=== PATIENT | female | born 1955 | race Caucasian/White ===

== ENCOUNTER 2021-11-25 13:24 | Outpatient (CLI) | payer MEDICARE, BC, SELFPAY ==
--- NOTE | 2021-11-25 13:40 | CRLHL7_ITS ---
For Patients: As a result of the Century Cures Act, medical imaging exams and procedure reports are released immediately into your electronic medical record. You may view this report before your referring provider. If you have questions, please contact your health care provider. BILATERAL MAMMOGRAM WITH COMPUTER-AIDED DETECTION TECHNIQUE: CC and MLO views were obtained. These mammographic images have been obtained using full-field digital technique. These mammographic images were interpreted with the benefit of computer-aided detection. COMPARISON FILM: No priors available. FINDINGS: There are scattered areas of fibroglandular density IMPRESSION: There is no radiographic evidence for malignancy. ASSESSMENT: BI-RADS Category 2: Benign RECOMMENDATION: Routine screening mammogram in 1 year. A lay language report of this examination will be provided to the patient. Magdy Stinson M.D. Diagnostic Radiologist [email or web address] ELIUD/Dictated by: Magdy Stinson MD @ 11/28/2021 8:36:00 AM (Electronically Signed)
== END 2021-11-25 13:25 | disposition home or self-care (01) ==
LOC: MAMMO 13:28
PROVIDERS: PCP Internal Medicine; Visit Provider Internal Medicine
DX: Z12.31 Encounter for screening mammogram for malignant neoplasm of breast (principal); R92.8 Other abnormal and inconclusive findings on diagnostic imaging of breast
CPT/HCPCS: 77063; 77067

== ENCOUNTER 2021-12-01 11:40 | Outpatient (CLI) | payer MEDICARE, BC, SELFPAY ==
--- NOTE | 2021-12-01 14:01 | W.ANESCHARGE ---
Anesthesia Charges Start Date/Time Anesthesia Start Date: 12/01/21 Anesthesia Start Time: 13:04 Stop Date/Time Anesthesia Stop Date: 12/01/21 Anesthesia Stop Time: 13:44 Summary Emergency: No
--- NOTE | 2021-12-01 14:21 | W.ANESCHARGE ---
Anesthesia Charges Start Date/Time Anesthesia Start Date: 12/01/21 Anesthesia Start Time: 13:04 Stop Date/Time Anesthesia Stop Date: 12/01/21 Anesthesia Stop Time: 13:44 Summary Emergency: No
== END 2021-12-01 11:41 | disposition home or self-care (01) ==
LOC: OP CLINIC 11:41
PROVIDERS: PCP Internal Medicine; Visit Provider Surgery
DX: Z90.49 Acquired absence of other specified parts of digestive tract (principal); K63.5 Polyp of colon; Z01.818 Encounter for other preprocedural examination; Z93.3 Colostomy status
CPT/HCPCS: 44394; 45330; 811; 88305; J2704

== ENCOUNTER 2021-12-07 08:43 | Outpatient (CLI) | payer MEDICARE, BC, SELFPAY ==
[2021-12-07 12:06] LABS: Cholesterol* 248 mg/dL (90-199)
[2021-12-07 12:07] LABS: HDL Cholesterol* 63 mg/dL (>=50); LDL Cholesterol Calculated 169 mg/dL (<100); Triglycerides* 81 mg/dL (40-149)
== END 2021-12-07 08:44 | disposition home or self-care (01) ==
PROVIDERS: PCP Internal Medicine; Visit Provider Obstetrics & Gynecology
DX: Z01.419 Encounter for gynecological examination (general) (routine) without abnormal findings (principal); Z12.4 Encounter for screening for malignant neoplasm of cervix; Z13.6 Encounter for screening for cardiovascular disorders; Z11.3 Encounter for screening for infections with a predominantly sexual mode of transmission
CPT/HCPCS: 80061; 87624; 88175

== ENCOUNTER 2021-12-26 07:14 | Outpatient (CLI) | payer MEDICARE, BC, SELFPAY ==
--- NOTE | 2021-12-26 07:22 | CRLHL7_ITS ---
For Patients: As a result of the Century Cures Act, medical imaging exams and procedure reports are released immediately into your electronic medical record. You may view this report before your referring provider. If you have questions, please contact your health care provider. Indication: FOLLOW UP COLON CANCER Technique: Postcontrast CT chest, abdomen and pelvis. 60 cc Isovue 370 intravenous contrast. Oral water. Please note that all CT scans at this facility use dose modulation, iterative reconstruction, and/or weight-based dosing when appropriate to reduce radiation dose to as low as reasonably achievable. Comparison: 07/21/2021 Findings: In the chest, there is a 1 centimeter left thyroid lobe nodule. Subcentimeter mediastinal and right hilar lymph nodes noted. No enlarged axillary lymph nodes. 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 No suspicious pulmonary nodule or mass. No infiltrate, edema, effusion or pneumothorax. No fracture. In the abdomen/pelvis, no suspicious intrahepatic mass. Stable cyst within the right hepatic lobe measuring 2.1 cm. No stigmata of cirrhosis. Gallbladder normal. Stable appearance of the left adrenal gland with unchanged nodularity. Stable benign hypodensity in the spleen measuring 1 centimeter. Tiny simple cysts within the left kidney are similar measuring up to 9 millimeters. Normal right adrenal gland. Unremarkable right kidney. No hydronephrosis. No enlarged retroperitoneal or mesenteric lymph nodes. The pancreas is normal. Weakening of the anterior abdominal wall without focal hernia. Similar appearance of the left lower quadrant ostomy without bowel obstruction or free air. No free fluid or abscess. Bladder normal. Stable appearance of the ovaries with small cystic changes. No large uterine fibroid. Appendix normal. Interval clearing of inflammatory changes regarding the anterior abdominal wall subcutaneous fat. Improved appearance of the bowel since the prior examination. The stomach is nondistended and there is prominence of the gastric wall. No fracture is noted. Mild degenerative changes. No suspicious intrinsic lesion. Impression: Postoperative changes of partial colectomy with unremarkable appearance of the left lower quadrant ostomy. No inflammatory changes or bowel obstruction. Clearing of inflammatory fluid about the anterior abdominal wall incision. Stable simple intrahepatic cyst and stable benign lesion within the spleen. Multiple small left renal cortical cysts. No suspicious adenopathy within the chest, abdomen or pelvis. COPD/emphysema changes within the lungs without suspicious pulmonary nodule. Chronic gastritis. Please note that all CT scans at this facility use dose modulation, iterative reconstruction, and/or weight-based dosing when appropriate to reduce radiation dose to as low as reasonably achievable. Dictated by Magdy Stinson MD @ 12/26/2021 10:49:21 AM (Electronically Signed)
[2021-12-26 07:52] LABS: Creatinine* 0.6 mg/dL (0.5-1.5); Estimated Glomerular Filt Rate 100 ml/min
== END 2021-12-26 07:15 | disposition home or self-care (01) ==
LOC: CT 07:15
PROVIDERS: PCP Internal Medicine; Visit Provider Internal Medicine Medical Oncology
DX: C18.9 Malignant neoplasm of colon, unspecified (principal); N28.1 Cyst of kidney, acquired; J44.9 Chronic obstructive pulmonary disease, unspecified; K29.50 Unspecified chronic gastritis without bleeding
CPT/HCPCS: 36415; 71260; 74177; 82565; J0690; J1100; J1170; J1885; J2250; J2405; J2704; J3010; Q9967

== ENCOUNTER 2022-02-24 13:57 | Outpatient (CLI) | payer MEDICARE, BC, SELFPAY | END 2022-02-24 13:58 | disposition home or self-care (01) | LOC: WOUND 13:58 | PROVIDERS: PCP Internal Medicine; Visit Provider Nurse Practitioner Family | DX: Z43.3 Encounter for attention to colostomy (principal); L24.A0 Irritant contact dermatitis due to friction or contact with body fluids, unspecified | CPT/HCPCS: 99212 ==

== ENCOUNTER 2022-04-27 14:54 | Outpatient (CLI) | payer MEDICARE, BC, SELFPAY ==
[2022-04-27 17:32] LABS: Cholesterol* 137 mg/dL (90-199); HDL Cholesterol* 47 mg/dL (>=50); LDL Cholesterol Calculated 69 mg/dL (<100); Triglycerides* 106 mg/dL (40-149)
== END 2022-04-27 14:55 | disposition home or self-care (01) ==
LOC: NFLDREF 16:06
PROVIDERS: PCP Internal Medicine; Visit Provider Internal Medicine
DX: E78.5 Hyperlipidemia, unspecified (principal)
CPT/HCPCS: 80061

== ENCOUNTER 2022-05-01 07:43 | Outpatient (CLI) | payer MEDICARE, BC, SELFPAY ==
--- NOTE | 2022-05-01 08:00 | CRLHL7_ITS ---
For Patients: As a result of the Century Cures Act, medical imaging exams and procedure reports are released immediately into your electronic medical record. You may view this report before your referring provider. If you have questions, please contact your health care provider. Indication: Follow-up colon cancer Technique: Post contrast CT chest, abdomen pelvis. 69 cc Isovue 370 intravenous contrast. Oral water. Please note that all CT scans at this facility use dose modulation, iterative reconstruction, and/or weight-based dosing when appropriate to reduce radiation dose to as low as reasonably achievable. Comparison: 12/26/2021 Findings: In the chest, stable nodularity of the left thyroid lobe. Stable subcentimeter mediastinal and right hilar lymph nodes. Atherosclerotic disease. No aneurysm. No dissection. No pericardial effusion. No fracture is present. Postop changes to the lower cervical spine. Stable benign pleural-based nodule right middle lobe measuring 2.4 millimeter, . COPD/emphysema. Small pleural-based density left upper lobe posteriorly measuring less than 3 millimeters, 08/04. In the abdomen, there is a stable cyst within the right hepatic lobe. No suspicious intrahepatic mass. Left lower quadrant ostomy is intact. There is no bowel obstruction. The adrenal glands are stable including stable nodularity of the left adrenal gland. Small renal cysts are present. There are stable benign areas of decreased density within the spleen representing cysts or hemangiomas. The pancreas is normal. Normal gallbladder. Vascular calcifications. No aneurysm. Weakening of the anterior abdominal wall is similar. No mesenteric or retroperitoneal adenopathy. In the pelvis, the ureters are normal. Normal bladder. The uterus is unremarkable. Stable calcifications associated with the ovaries bilaterally. The appendix is normal. No small bowel obstruction. No pelvic or inguinal adenopathy. Degenerative changes are present at both hips. Degenerative facet arthropathy lower lumbar spine. No fracture. Impression: No evidence of metastatic disease within the chest, abdomen or pelvis. Please note that all CT scans at this facility use dose modulation, iterative reconstruction, and/or weight-based dosing when appropriate to reduce radiation dose to as low as reasonably achievable. Dictated by Magdy Stinson MD @ 05/01/2022 1:00:02 PM (Electronically Signed)
[2022-05-01 08:16] LABS: Basophils Absolute Auto 0.02 K/uL (0.00-0.30); Basophils Percent Auto 0.3 % (0.0-3.0); Eosinophils Absolute Auto 0.13 K/uL (0.00-0.50); Eosinophils Percent Auto 1.7 % (0.0-7.0); Hematocrit 40.3 % (33.0-51.0); Hemoglobin* 13.1 gm/dL (12.0-16.0); Immature Granulocytes Abs Auto 0.02 K/uL (0.00-0.30); Immature Granulocytes Pct Auto 0.3 %; Lymphocytes Absolute Auto 2.35 K/uL (0.90-2.90); Lymphocytes Percent Auto 30.8 % (20-44); Mean Corpuscular HGB Conc 33 gm/dL (32-36); Mean Corpuscular Hemoglobin 30 pg (26-34); Mean Corpuscular Volume 94 fL (80-100); Monocytes Percent Auto 7.1 % (0.0-11.0); Neutrophils Absolute Auto 4.57 K/uL (1.7-7.0); Neutrophils Percent Auto 59.8 % (42.0-72.0); Platelet Count* 310 K/uL (140-440); RDW Coefficient of Variation % 12.7 % (11.5-15.5); Red Blood Count 4.31 m/uL (4.00-5.20); White Blood Count* 7.63 K/uL (4.50-11.00)
[2022-05-01 08:23] LABS: Slide Review Reflex No
[2022-05-01 08:25] LABS: Albumin* 4.3 g/dL (3.3-5.0); Chloride* 111 mmol/L (96-114); Potassium* 4.3 mmol/L (3.6-5.1); Sodium* 145 mmol/L (135-149)
[2022-05-01 08:27] LABS: Creatinine* 0.7 mg/dL (0.5-1.5); Estimated Glomerular Filt Rate 96 ml/min
[2022-05-01 08:28] LABS: Alanine Aminotransferase* 13 U/L (4-35); Alkaline Phosphatase* 71 U/L (40-150); Aspartate Amino Transferase* 17 U/L (12-35); Bilirubin Total* 0.6 mg/dL (0.1-1.5); Blood Urea Nitrogen* 8 mg/dL (7-30); Calcium* 9.3 mg/dL (8.4-10.6); Carbon Dioxide* 27 mmol/L (20-32); Glucose* 94 mg/dL (60-115); Total Protein* 7.2 g/dL (6.0-8.3)
[2022-05-02 22:24] LABS: Carcinoembryonic Antigen 4.1 ng/mL (<=3.8)
== END 2022-05-01 07:44 | disposition home or self-care (01) ==
LOC: CT 07:44
PROVIDERS: PCP Internal Medicine; Visit Provider Internal Medicine Medical Oncology
DX: Z85.038 Personal history of other malignant neoplasm of large intestine (principal)
CPT/HCPCS: 36415; 71260; 74177; 80053; 82378; 85025; Q9967

== ENCOUNTER 2022-05-08 14:45 | Outpatient (RCR) | payer MEDICARE, BC, SELFPAY | END 2022-07-01 23:59 | disposition home or self-care (01) | LOC: CCIC 14:45 | PROVIDERS: PCP Internal Medicine; Referring Provider Internal Medicine; Visit Provider Internal Medicine Medical Oncology | DX: C18.9 Malignant neoplasm of colon, unspecified (principal) | CPT/HCPCS: 99212; 99214 ==

== ENCOUNTER 2022-08-24 08:02 | Outpatient (CLI) | payer MEDICARE, BC, SELFPAY | END 2022-08-24 08:03 | disposition home or self-care (01) | LOC: WOUND 08:02 | PROVIDERS: PCP Internal Medicine; Visit Provider Nurse Practitioner Family | DX: Z43.3 Encounter for attention to colostomy (principal); L24.B1 Irritant contact dermatitis related to digestive stoma or fistula | CPT/HCPCS: 99213 ==

== ENCOUNTER 2022-11-06 07:33 | Outpatient (CLI) | payer MEDICARE, BC, SELFPAY ==
--- NOTE | 2022-11-06 08:00 | CRLHL7_ITS ---
For Patients: As a result of the Cures Act, medical imaging exams and procedure reports are released immediately into your electronic medical record. You may view this report before your referring provider. If you have questions, please contact your health care provider. INDICATION: High risk stage II colon cancer. Surgical resection. Colostomy. Follow-up. Restaging. TECHNIQUE: CT of the chest abdomen and pelvis. Oral water administered. 69 cc nonionic Isovue-370 administered. COMPARISON : May 01, 2022. FINDINGS: CT chest: No evidence for metastatic disease. The previously tiny sub cm nodules described in the left upper lobe and the right middle lobe are stable to less evident than before. Small stable left thyroid lobe nodule. No mediastinal lymphadenopathy. The included breasts are unremarkable. Normal caliber thoracic aorta. CT of the abdomen and pelvis: Partial left hemicolectomy. Diverting ostomy. Stable 2 cm hepatic cyst. Two tiny stable low-dense lesions of the spleen likely cysts or hemangiomas. The pancreas and right adrenal gland are unremarkable. Benign nodularity left adrenal gland may reflect a tiny adenoma unchanged. Few tiny renal cysts. No solid renal mass or stone. No renal obstruction. Vascular calcification within a normal caliber abdominal aorta and iliac arteries. Normal inferior vena cava. Normal appendix. The urinary bladder and uterus are unremarkable. Small postmenopausal ovaries with some peripheral calcification. No abdominopelvic ascites or lymphadenopathy. No inguinal lymphadenopathy. The included skeleton is negative for lytic or blastic lesions. Two level cervical spine fusion incompletely visualized. Degenerative narrowing of the hips. Degenerative change of the lower lumbar spine. IMPRESSION: No evidence for metastatic disease. No significant change. Please note that all CT scans at this facility use dose modulation, iterative reconstruction, and/or weight-based dosing when appropriate to reduce radiation dose to as low as reasonably achievable. Dictated by Jose Mcdaniel MD @ 11/06/2022 10:27:25 AM (Electronically Signed)
== END 2022-11-06 07:34 | disposition home or self-care (01) ==
LOC: CT 07:34
PROVIDERS: PCP Internal Medicine; Visit Provider Internal Medicine Medical Oncology
DX: Z85.038 Personal history of other malignant neoplasm of large intestine (principal)
CPT/HCPCS: 71260; 74177; 80053; 85025; Q9967

== ENCOUNTER 2022-11-06 07:52 | Outpatient (CLI) | payer MEDICARE, BC, SELFPAY | END 2022-11-06 07:53 | disposition home or self-care (01) | LOC: NFLDREF 10:26 | PROVIDERS: PCP Internal Medicine; Referring Provider Internal Medicine; Visit Provider Physician Assistant | DX: Z85.038 Personal history of other malignant neoplasm of large intestine (principal) | CPT/HCPCS: 80053; 82378; 85025 ==

== ENCOUNTER 2022-11-16 08:30 | Outpatient (RCR) | payer MEDICARE, BC, SELFPAY ==
[2022-08-09 17:38] LABS: Carcinoembryonic Antigen 4.2 ng/mL (<=3.8)
== END 2023-02-04 23:59 | disposition home or self-care (01) ==
LOC: CCIC 08:30
PROVIDERS: Internal Medicine Medical Oncology; PCP Internal Medicine; Referring Provider Internal Medicine; Visit Provider Physician Assistant
DX: C18.5 Malignant neoplasm of splenic flexure (principal); D12.6 Benign neoplasm of colon, unspecified; F17.200 Nicotine dependence, unspecified, uncomplicated; Z93.4 Other artificial openings of gastrointestinal tract status
CPT/HCPCS: 36415; 82378; 99212; 99214

== ENCOUNTER 2023-01-11 08:42 | Outpatient (CLI) | payer MEDICARE, BC, SELFPAY ==
--- NOTE | 2023-01-11 07:02 | W.ANESCHARGE ---
Anesthesia Charges Start Date/Time Anesthesia Start Date: 01/11/23 Anesthesia Start Time: 09:35 Stop Date/Time Anesthesia Stop Date: 01/11/23 Anesthesia Stop Time: 10:05
--- NOTE | 2023-01-11 10:27 | W.ANESCHARGE ---
Anesthesia Charges Start Date/Time Anesthesia Start Date: 01/11/23 Anesthesia Start Time: 09:35 Stop Date/Time Anesthesia Stop Date: 01/11/23 Anesthesia Stop Time: 10:05
== END 2023-01-11 08:43 | disposition home or self-care (01) ==
LOC: OP CLINIC 08:42
PROVIDERS: PCP Internal Medicine; Visit Provider Surgery
DX: Z85.038 Personal history of other malignant neoplasm of large intestine (principal); K63.5 Polyp of colon; Z90.49 Acquired absence of other specified parts of digestive tract
CPT/HCPCS: 00811; 44389; 45378; 88305; J2704

== ENCOUNTER 2023-04-03 12:41 | Outpatient (CLI) | payer MEDICARE, BC, SELFPAY ==
--- NOTE | 2023-04-03 13:00 | CRLHL7_ITS ---
For Patients: As a result of the Century Cures Act, medical imaging exams and procedure reports are released immediately into your electronic medical record. You may view this report before your referring provider. If you have questions, please contact your health care provider. BILATERAL SCREENING MAMMOGRAM WITH COMPUTER-AIDED DETECTION TECHNIQUE: CC and MLO views were obtained. These mammographic images have been obtained using full-field digital technique. These mammographic images were interpreted with the benefit of computer-aided detection. COMPARISON FILM: 11/25/21. FINDINGS: There are scattered areas of fibroglandular density IMPRESSION: There is no radiographic evidence for malignancy. ASSESSMENT: BI-RADS Category 2: Benign RECOMMENDATION: Routine screening mammogram in 1 year. A lay language report of this examination will be provided to the patient. Magdy Stinson M.D. Diagnostic Radiologist [email or web address] ELIUD/Dictated by: Magdy Stinson MD @ 04/04/2023 12:43:00 PM (Electronically Signed)
== END 2023-04-03 12:42 | disposition home or self-care (01) ==
PROVIDERS: PCP Internal Medicine; Visit Provider Internal Medicine
DX: Z12.31 Encounter for screening mammogram for malignant neoplasm of breast (principal)
CPT/HCPCS: 77067

== ENCOUNTER 2023-05-17 07:30 | Outpatient (CLI) | payer MEDICARE, BC, SELFPAY ==
--- NOTE | 2023-05-17 08:00 | CRLHL7_ITS ---
For Patients: As a result of the Century Cures Act, medical imaging exams and procedure reports are released immediately into your electronic medical record. You may view this report before your referring provider. If you have questions, please contact your health care provider. Indication: MALIGNANT NEOPLASM OF COLON, COLON CANCER SURVEILLANCE Technique: CT Chest/Abd/Pelvis W/69C Isovue-370 Please note that all CT scans at this facility use dose modulation, iterative reconstruction, and/or weight-based dosing when appropriate to reduce radiation dose to as low as reasonably achievable. Comparison: 11/06/2022 Findings: In the chest, stable 1.3 cm left thyroid lobe nodule. Incidental pericardial recess. Stable right hilar lymph node. No enlarged mediastinal or axillary lymph nodes. Unremarkable breast tissue. Atherosclerotic changes. No pleural or pericardial effusion. Emphysema. Biapical pleural parenchymal scarring. Stable left apical parenchymal scarring. In the abdomen, stable simple cyst within the right hepatic lobe. No suspicious intrahepatic mass. The gallbladder is normal. No biliary obstruction. The pancreas is normal. Stable spleen with incidental areas of decreased attenuation. Adrenal glands are normal. No hydronephrosis. Stable subcentimeter renal cortical cysts bilaterally. No hiatal hernia. Vascular calcifications. Stable subcentimeter retroperitoneal lymph nodes. Postoperative changes of hemicolectomy. No bowel obstruction. Weakening of the anterior abdominal wall again noted. In the pelvis, left lower quadrant ostomy is intact. The appendix is normal. Bladder unremarkable. Uterus normal. Small bilateral ovarian cysts are similar. No pelvic or inguinal adenopathy. Degenerative changes are present at the right hip. No fracture. Facet degeneration lower lumbar spine. Impression: Stable exam. No evidence of metastatic disease. Please note that all CT scans at this facility use dose modulation, iterative reconstruction, and/or weight-based dosing when appropriate to reduce radiation dose to as low as reasonably achievable. Dictated by Magdy Stinson MD @ 05/17/2023 4:59:05 PM (Electronically Signed)
== END 2023-05-17 07:31 | disposition home or self-care (01) ==
LOC: CT 07:31
PROVIDERS: PCP Internal Medicine; Visit Provider Physician Assistant
DX: C18.9 Malignant neoplasm of colon, unspecified (principal)
CPT/HCPCS: 36415; 71260; 74177; 80048; 85025; Q9967

== ENCOUNTER 2023-05-22 15:00 | Outpatient (RCR) | payer MEDICARE, BC, SELFPAY ==
[2023-05-17 08:08] LABS: Basophils Absolute Auto 0.04 K/uL (0.00-0.30); Basophils Percent Auto 0.5 % (0.0-3.0); Eosinophils Absolute Auto 0.17 K/uL (0.00-0.50); Eosinophils Percent Auto 2.3 % (0.0-7.0); Hematocrit 41.2 % (33.0-51.0); Hemoglobin* 13.5 gm/dL (12.0-16.0); Immature Granulocytes Abs Auto 0.03 K/uL (0.00-0.30); Immature Granulocytes Pct Auto 0.4 %; Lymphocytes Absolute Auto 2.15 K/uL (0.90-2.90); Lymphocytes Percent Auto 28.9 % (20-44); Mean Corpuscular HGB Conc 33 gm/dL (32-36); Mean Corpuscular Hemoglobin 31 pg (26-34); Mean Corpuscular Volume 96 fL (80-100); Monocytes Percent Auto 6.8 % (0.0-11.0); Neutrophils Absolute Auto 4.55 K/uL (1.7-7.0); Neutrophils Percent Auto 61.1 % (42.0-72.0); Platelet Count* 225 K/uL (140-440); RDW Coefficient of Variation % 13.5 % (11.5-15.5); Red Blood Count 4.31 m/uL (4.00-5.20); White Blood Count* 7.45 K/uL (4.50-11.00)
[2023-05-17 08:19] LABS: Chloride* 108 mmol/L (96-114); Potassium* 3.9 mmol/L (3.6-5.1); Sodium* 138 mmol/L (135-149)
[2023-05-17 08:22] LABS: Anion Gap 7 mEq/L (7-15); Carbon Dioxide* 23 mmol/L (20-32); Creatinine* 0.6 mg/dL (0.5-1.5); Estimated Glomerular Filt Rate 99 ml/min
[2023-05-17 08:23] LABS: Blood Urea Nitrogen* 7 mg/dL (7-30); Calcium* 8.4 mg/dL (8.4-10.6); Glucose* 97 mg/dL (60-115); Slide Review Reflex No
[2023-05-22 16:15] LABS: Albumin* 4.4 g/dL (3.3-5.0)
[2023-05-22 16:18] LABS: Aspartate Amino Transferase* 23 U/L (12-35); Bilirubin Total* 0.3 mg/dL (0.1-1.5); Total Protein* 7.4 g/dL (6.0-8.3)
[2023-05-22 16:19] LABS: Alanine Aminotransferase* 13 U/L (4-35); Alkaline Phosphatase* 78 U/L (40-150)
[2023-05-24 15:57] LABS: Carcinoembryonic Antigen 4.1 ng/mL (<=3.8)
--- NOTE | 2023-05-28 13:14 | ONC.NURNOTE ---
Labs reviewed by Dr. Mcqueen. Investor Relations Coordinator called pt to let her know labs were reviewed, no intervention needed at this time. Pt verbalized understanding of lab results.
== END 2023-11-13 23:59 | disposition home or self-care (01) ==
LOC: CCIC 15:00
PROVIDERS: PCP Internal Medicine; Referring Provider Internal Medicine; Visit Provider Internal Medicine Hematology & Oncology
DX: C18.5 Malignant neoplasm of splenic flexure (principal); Z85.038 Personal history of other malignant neoplasm of large intestine; Z86.010 Personal history of colon polyps; F17.200 Nicotine dependence, unspecified, uncomplicated; Z93.3 Colostomy status
CPT/HCPCS: 36415; 80048; 80076; 82378; 85025; 99213; 99214; G0463

== ENCOUNTER 2023-11-20 09:00 | Outpatient (RCR) | payer MEDICARE, BC, SELFPAY ==
[2023-11-14 07:50] LABS: Basophils Absolute Auto 0.01 K/uL (0.00-0.30); Basophils Percent Auto 0.1 % (0.0-3.0); Eosinophils Absolute Auto 0.25 K/uL (0.00-0.50); Eosinophils Percent Auto 3.2 % (0.0-7.0); Hematocrit 42.6 % (33.0-51.0); Hemoglobin* 13.8 gm/dL (12.0-16.0); Immature Granulocytes Abs Auto 0.01 K/uL (0.00-0.30); Immature Granulocytes Pct Auto 0.1 %; Lymphocytes Absolute Auto 2.95 K/uL (0.90-2.90); Lymphocytes Percent Auto 37.4 % (20-44); Mean Corpuscular HGB Conc 32 gm/dL (32-36); Mean Corpuscular Hemoglobin 31 pg (26-34); Mean Corpuscular Volume 96 fL (80-100); Monocytes Percent Auto 5.3 % (0.0-11.0); Neutrophils Absolute Auto 4.25 K/uL (1.7-7.0); Neutrophils Percent Auto 53.9 % (42.0-72.0); Platelet Count* 226 K/uL (140-440); RDW Coefficient of Variation % 13.1 % (11.5-15.5); Red Blood Count 4.42 m/uL (4.00-5.20); White Blood Count* 7.89 K/uL (4.50-11.00)
[2023-11-14 07:59] LABS: Slide Review Reflex No
[2023-11-14 08:05] LABS: Albumin* 4.5 g/dL (3.3-5.0); Chloride* 108 mmol/L (96-114); Sodium* 141 mmol/L (135-149)
[2023-11-14 08:06] LABS: Potassium* 4.8 mmol/L (3.6-5.1)
[2023-11-14 08:08] LABS: Alanine Aminotransferase* 27 U/L (4-35); Alkaline Phosphatase* 72 U/L (40-150); Anion Gap 4 mEq/L (7-15); Aspartate Amino Transferase* 25 U/L (12-35); Bilirubin Total* 0.4 mg/dL (0.1-1.5); Blood Urea Nitrogen* 11 mg/dL (7-30); Carbon Dioxide* 29 mmol/L (20-32); Creatinine* 0.6 mg/dL (0.5-1.5); Estimated Glomerular Filt Rate 98 ml/min; Glucose* 112 mg/dL (60-115); Total Protein* 7.1 g/dL (6.0-8.3)
[2023-11-14 08:09] LABS: Calcium* 9.3 mg/dL (8.4-10.6)
[2023-11-16 02:29] LABS: Carcinoembryonic Antigen 4.5 ng/mL (<=3.8)
== END 2024-05-12 23:59 | disposition home or self-care (01) ==
LOC: CCIC 09:00
PROVIDERS: PCP Internal Medicine; Referring Provider Internal Medicine; Visit Provider Internal Medicine Hematology & Oncology
DX: C18.5 Malignant neoplasm of splenic flexure (principal); F17.200 Nicotine dependence, unspecified, uncomplicated
CPT/HCPCS: 36415; 71260; 74177; 80053; 82378; 85025; 99214; G0463; Q9967

== ENCOUNTER 2024-05-28 14:25 | Outpatient (CLI) | payer MEDICARE, BC, SELFPAY ==
--- NOTE | 2024-05-28 15:00 | CRLHL7_ITS ---
For Patients: As a result of the Century Cures Act, medical imaging exams and procedure reports are released immediately into your electronic medical record. You may view this report before your referring provider. If you have questions, please contact your health care provider. BILATERAL SCREENING MAMMOGRAM WITH COMPUTER-AIDED DETECTION AND TOMOSYNTHESIS TECHNIQUE: CC and MLO views were obtained. These mammographic images have been obtained using full-field digital technique. These mammographic images were interpreted with the benefit of computer-aided detection. Breast Tomosynthesis was used in this interpretation. COMPARISON FILM: 04/03/23, 11/25/21. FINDINGS: There are scattered areas of fibroglandular density. IMPRESSION: There is no radiographic evidence for malignancy. ASSESSMENT: BI-RADS Category 1: Negative RECOMMENDATION: Routine screening mammogram in 1 year. A lay language report of this examination will be provided to the patient. Magdy Stinson M.D. Diagnostic Radiologist [email or web address] SP/Dictated by: Magdy Stinson MD @ 05/29/2024 10:08:00 AM (Electronically Signed)
--- NOTE | 2024-05-28 16:00 | CRLHL7_ITS ---
For Patients: As a result of the Century Cures Act, medical imaging exams and procedure reports are released immediately into your electronic medical record. You may view this report before your referring provider. If you have questions, please contact your health care provider. INDICATION: Malignant neoplasm of splenic flexure TECHNIQUE: Volumetric helical scanning of the chest, abdomen and pelvis was performed with 67 cc of Isovue 370 contrast material IV. Coronal and sagittal reconstructions were obtained. COMPARISON: Chest/abdomen/pelvis CT of 05/17/2023 FINDINGS: CHEST: No pulmonary nodule is evident. Centrilobular emphysema is demonstrated. No infiltrate, airway abnormality or pleural effusion is demonstrated. No axillary, mediastinal or hilar adenopathy is apparent. An unchanged 1.5 cm left thyroid nodule is demonstrated. The heart is normal in size. ABDOMEN/PELVIS: A left abdominal colostomy is again demonstrated. No recurrent mass is demonstrated. No lymphadenopathy, peritoneal implant or free intraperitoneal fluid is noted. Bowel is otherwise unremarkable except for sigmoid diverticulosis. The liver is unremarkable except for a 2 cm right hepatic lobe cyst. The bile ducts are within normal limits. Several low attenuation splenic lesions are again demonstrated appear unchanged. The spleen is normal in size and shape. An unchanged 1 cm left adrenal nodule is demonstrated. The adrenal glands are otherwise unremarkable. The kidneys are unremarkable. The uterus is unremarkable. Unchanged ovarian cysts are demonstrated. Postop rectus diastasis is again demonstrated. No lytic or blastic bone lesion is identified. IMPRESSION: 1. Left abdominal colostomy. No evidence of recurrent/metastatic disease. 2. Centrilobular emphysema. 3. Unchanged 1.5 cm left thyroid nodule. 4. Unchanged 1 cm left adrenal nodule. Please note that all CT scans at this facility use dose modulation, iterative reconstruction, and/or weight-based dosing when appropriate to reduce radiation dose to as low as reasonably achievable. Dictated by Felipe Keith MD @ 05/29/2024 3:34:50 PM (Electronically Signed)
== END 2024-05-28 14:26 | disposition home or self-care (01) ==
LOC: CT 14:29
PROVIDERS: PCP Internal Medicine; Visit Provider Internal Medicine Hematology & Oncology
DX: C18.5 Malignant neoplasm of splenic flexure (principal); E04.1 Nontoxic single thyroid nodule; E27.9 Disorder of adrenal gland, unspecified; Z12.31 Encounter for screening mammogram for malignant neoplasm of breast
CPT/HCPCS: 71260; 74177; 77063; 77067; Q9967

== ENCOUNTER 2024-06-12 08:30 | Outpatient (RCR) | payer MEDICARE, BC, SELFPAY ==
[2024-05-28 15:08] LABS: Hematocrit 42.9 % (33.0-51.0); Hemoglobin* 14.1 gm/dL (12.0-16.0); Immature Granulocytes Pct Auto 0.3 %; Mean Corpuscular HGB Conc 33 gm/dL (32-36); Mean Corpuscular Hemoglobin 32 pg (26-34); Mean Corpuscular Volume 98 fL (80-100); RDW Coefficient of Variation % 13.0 % (11.5-15.5); Red Blood Count 4.40 m/uL (4.00-5.20); White Blood Count* 11.90 K/uL (4.50-11.00)
[2024-05-28 15:25] LABS: Immature Granulocytes Abs Auto 0.00 K/uL (0.00-0.30); Lymphocytes Absolute Auto 4.00 K/uL (0.90-2.90); Slide Review Reflex No
[2024-05-28 15:53] LABS: Albumin* 4.7 g/dL (3.3-5.0); Chloride* 102 mmol/L (96-114); Potassium* 3.5 mmol/L (3.6-5.1); Sodium* 138 mmol/L (135-149)
[2024-05-28 15:55] LABS: Anion Gap 7 mEq/L (7-15); Bilirubin Total* 0.6 mg/dL (0.1-1.5); Carbon Dioxide* 29 mmol/L (20-32); Creatinine* 0.8 mg/dL (0.5-1.5); Estimated Glomerular Filt Rate 81 ml/min
[2024-05-28 15:56] LABS: Alanine Aminotransferase* 25 U/L (4-35); Alkaline Phosphatase* 66 U/L (40-150); Aspartate Amino Transferase* 24 U/L (12-35); Blood Urea Nitrogen* 20 mg/dL (7-30); Calcium* 9.6 mg/dL (8.4-10.6); Glucose* 73 mg/dL (60-115); Total Protein* 7.8 g/dL (6.0-8.3)
[2024-05-31 13:44] LABS: Carcinoembryonic Antigen 5.0 ng/mL (<=3.8)
== END 2024-11-24 23:59 | disposition home or self-care (01) ==
LOC: CCIC 08:30
PROVIDERS: Internal Medicine Hematology & Oncology; PCP Internal Medicine; Referring Provider Internal Medicine; Visit Provider Physician Assistant
DX: C18.5 Malignant neoplasm of splenic flexure (principal); Z85.038 Personal history of other malignant neoplasm of large intestine; F17.200 Nicotine dependence, unspecified, uncomplicated; D72.829 Elevated white blood cell count, unspecified; Z93.3 Colostomy status
CPT/HCPCS: 36415; 80053; 82378; 85025; 99214; G0463

== ENCOUNTER 2024-10-02 08:11 | Outpatient (CLI) | payer MEDICARE, BC, SELFPAY ==
[2024-10-08 05:07] LABS: HPV Source Cervical; HPV, High Risk by TMA Not Detected
== END 2024-10-02 08:12 | disposition home or self-care (01) ==
PROVIDERS: PCP Internal Medicine; Visit Provider Internal Medicine
DX: E78.5 Hyperlipidemia, unspecified (principal); Z11.51 Encounter for screening for human papillomavirus (HPV); Z12.4 Encounter for screening for malignant neoplasm of cervix
CPT/HCPCS: 80061; 87624; 87625; 88141; 88142

== ENCOUNTER 2024-10-11 08:04 | Emergency (ER) | payer MEDICARE, BC, SELFPAY ==
[2024-10-11 08:13] VITALS: BP 122/62; PULSE 85; RESP 16; TEMP 36.6; O2SAT 96; BMI 24.2
[2024-10-11 08:15] VITALS: RESP 16
--- NOTE | 2024-10-11 08:29 | ED_ITS ---
HPI - General Adult General Chief complaint: Post Op Complication Stated complaint: bleeding on back after surgery Time Seen by Provider: 10/11/24 08:17 History of Present Illness HPI narrative: This 68-year-old female comes in with concern about some drainage from a biopsy site on her right upper back. She had a mole removed that was about dime-sized several days ago. She has stitches in place and a bandage is applied over the wound. The edges of the bandage pulled away and she was concerned about some drainage. She states that she lives alone at home and it is difficult for her to manage this area as she does not have someone else to look at it and apply dressing. She does not report any other symptoms. Related Data Home Medications ?Medication ?Instructions ?Recorded ?Confirmed acetaminophen 500 mg tablet 500 mg PO Q6H PRN 01/02/22 10/11/24 (Tylenol Extra Strength) albuterol sulfate 90 mcg/actuation 2 inh inhalation Q6 H PRN 11/16/22 10/11/24 breath activated powder inhaler Previous Rx's ?Medication ?Instructions ?Recorded simvastatin 10 mg tablet 10 mg PO QPM #90 tabs Allergies Allergy/AdvReac Type Severity Reaction Status Date / Time aspirin Allergy Unknown I don't Verified 10/11/24 08:13 really know, it's been a long standing thing Review of Systems Status of ROS: Reports: 10 or more systems reviewed and unremarkable except as noted in History and below Narrative: Constitutional: No fevers, no weight gain or loss. Eyes: No discharge. No vision changes. HENT: No congestion, no sore throat, no ear pain. Cardiovascular: No chest pain, no palpitations. Respiratory: No shortness of breath, no wheezes, no cough. Gastrointestinal: No abdominal pain, no vomiting, no diarrhea. Genitourinary: No dysuria, no hematuria. Musculoskeletal: Normal range of motion. Skin: No rashes, no pruritis. Neurological: No dizziness, weakness, sensory change, speech change. Endo/Heme/Allergies: No bruising or bleeding. No polydipsia. Pysch: no suicidality, no anxiety, no insomnia. All other systems reviewed and are negative. [facility] History History of tonsillectomy ?Z90.89 - Acquired absence of other organs (ICD-10) History of sinus surgery (1991) ?Z98.890 - Other specified postprocedural states (ICD-10) History of left hemicolectomy (2021) ?Z90.49 - Acquired absence of other specified parts of digestive tract (ICD- 10) History of cervical fracture (04/2017) ?Z87.81 - Personal history of (healed) traumatic fracture (ICD-10) Family History Breast cancer Mother Aunt Social History (Updated 10/02/24 @ 09:06 by Shivani Joel ~ [facility]) Narrative: She lives in [place]. 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 She has a bachelor's degree She exercises 3 times a week with walking She smokes 10 cigarettes a day She does not drink alcohol She does not use recreational drugs What is your current living situation?: I presently have a place to live Problems where you live: no known problems In the past 12 months, utilities in danger of being shut off: no In past 12 months, lack of transportation kept you from medical appts, meetings, work, or getting things needed for daily living: no In the past 12 mos, have been you worried that your food would run out before you had money to buy more?: never true In the past 12 mos, the food you bought just didn't last and you didn't have money to buy more?: never true Smoking Status: Current every day smoker How often does anyone, including family, friends and others, physically hurt you : never How often does anyone, including family, friends and others, insult or talk down to you: never How often does anyone, including family, friends and others, threaten you with harm: never How often does anyone, including family, friends and others, scream or curse at you: never Exam Narrative: Exam Narrative: Constitutional: Well-developed, well-nourished, no acute distress. HEENT: Normocephalic, atraumatic. Neck: Normal range of motion. Nontender. Supple. Heart: Intact distal pulses. Lungs: No chest discomfort. No wheezes, rhonchi, or rales. Abdomen: Nontender. Back: Normal range of motion. Extremities: Normal range of motion. No injury. Skin: Intact. No rash. Warm. No erythema or pallor. Biopsy site overlying the right scapular region of her back has [address] with no sign of drainage. There is no erythema or sign of infection. The wound itself is sealed and in normal process of healing. Neurologic: No altered sensation. No weakness. Alert and oriented. Psychiatric: No suicidality. No anxiety or depression. No insomnia. Nursing notes and vitals signs are reviewed. Const: Vital Signs, click to edit/add: Vital Signs - 24 hr 10/11/24 08:13 Temperature 97.8 F Pulse Rate [Pulse Oximeter] 85 Respiratory Rate 16 Blood Pressure [Ri ght Upper Arm] 122/62 Pulse Oximetry 96 Oxygen Delivery Me thod Room Air Course Vital Signs Vital signs: Initial Vital Signs Temperature 97.8 F 10/11/24 08:13 Temperature Source Temporal Artery Scan 10/11/24 08:13 Pulse Rate 85 10/11/24 08:13 Respiratory Rate 16 10/11/24 08:13 Blood Pressure 122/62 10/11/24 08:13 Blood Pressure Mean 82 10/11/24 08:13 Blood Pressure Position Sitting 10/11/24 08:13 Pulse Oximetry 96 10/11/24 08:13 Oxygen Delivery Method Room Air 10/11/24 08:13 Vital Signs Temperature 97.8 F 10/11/24 08:13 Pulse Rate 85 10/11/24 08:13 Respiratory Rate 16 10/11/24 08:13 Blood Pressure 122/62 10/11/24 08:13 Pulse Oximetry 96 10/11/24 08:13 Oxygen Delivery Method Room Air 10/11/24 08:13 Temperature 97.8 F 10/11/24 08:13 Pulse Rate 85 10/11/24 08:13 Respiratory Rate 16 10/11/24 08:13 Blood Pressure 122/62 10/11/24 08:13 Pulse Oximetry 96 10/11/24 08:13 Oxygen Delivery Method Room Air 10/11/24 08:13 Medical Decision Making MDM Narrative Medical decision making narrative: This person has a bandage over her biopsy site of her right upper back. The bandage has pulled away partly in the patient was concerned about drainage. There is no sign of active bleeding and the wound is healing properly. I did cleanse the wound and reapplied a bandage. The patient does have a follow-up appointment in clinic in about 3 days. Discharge Plan Discharge Clinical Impression: Visit for wound care Patient Disposition: Home, Self-Care Condition: Stable Additional Instructions: Continue current plans. Use [id number] medicines as needed and directed. Follow up with MD return if worsening. Prescriptions: No Action albuterol sulfate 90 mcg/actuation aerosol powdr breath activated 2 inh inhalation Q6H PRN acetaminophen [Tylenol Extra Strength] 500 mg tablet 500 mg PO Q6H PRN simvastatin 10 mg tablet 10 mg PO QPM Qty: 90 3RF Follow Up/Referrals: Shivani Nash MD [Primary Care Provider, Internal Medicine] Stand Alone Forms: [employer] Info Instructions
== END 2024-10-11 08:41 | disposition home or self-care (01) ==
LOC: ED 08:34
PROVIDERS: Emergency Provider Emergency Medicine Emergency Medical Services; PCP Internal Medicine
DX: Z48.817 Encounter for surgical aftercare following surgery on the skin and subcutaneous tissue (principal)
CPT/HCPCS: 99199; 99284

== ENCOUNTER 2024-10-29 14:26 | Outpatient (CLI) | payer MEDICARE, BC, SELFPAY ==
--- NOTE | 2024-10-29 15:00 | CRLHL7_ITS ---
For Patients: As a result of the Century Cures Act, medical imaging exams and procedure reports are released immediately into your electronic medical record. You may view this report before your referring provider. If you have questions, please contact your health care provider. DXA BONE MINERAL DENSITY STUDY Current height (in): 65. Weight (lb): 145 Menopause age: 54. Ethnicity: White. 1. Have you had a previous hip or vertebral fracture? No. 2. Have you had any fractures during your adult life which did not result from significant trauma (e.g., auto accident)? No. 3. Did either of your parents have a hip fracture? Yes. 4. Do you smoke? Yes. 5. Have you ever taken Glucocorticoids? No. 6. Do you have rheumatoid arthritis? No. 7. Do you have secondary osteoporosis? No. 8. Do you drink 3 or more alcoholic drinks per day? No. 9. Are you being treated for osteoporosis? No. 10. Have you ever taken any of the following medications: Actonel, Evista, Fosamax, Miacalcin, Reclast, Boniva, Forteo, HRT (i.e. estrogen/hormone therapy), Protelos, Prolia, Vitamin D, Calcium, other ??? please specify. ANSWER: No. 11. Do you have any of the following medical conditions: Anorexia or bulimia, asthma or emphysema, end stage renal disease, hyperparathyroidism, any seizure disorders, cancer, inflammatory bowel diseases, hysterectomy, other ??? please specify. ANSWER: Yes, Asthma or Emphysema and Cancer. 12. What was your maximum height (inches)? 65. 13. Do you perform weight bearing exercise regularly? No. 14. Do you regularly consume dairy products? Yes. 15. Do you drink caffeinated beverages? Yes. 16. At what age did your period start? 14. 17. Are you premenopausal? No. 18. How many full term pregnancies have you had? 0. 19. Have you ever missed your period for more than 6 months in a row (not including or menopause)? No. TECHNIQUE: Bone mineral density study was performed using the [email or web address]. FINDINGS: The results of the study expressed as bone mineral density (BMD) are as follows: Lumbar spine L1 to L4: BMD: 1.082 g/cm2. T-score: 0.3. Z-score: 2.3. Neck Left: BMD: 0.744 g/cm2. T-score: -0.9 . Z-score: 0.7. Right: BMD: 0.930 g/cm2. T-score: 0.7. Z-score: 2.4. Total Left: BMD: 0.902 g/cm2. T-score: -0.3. Z-score: 1.1. Right: BMD: 0.974 g/cm2. T-score: 0.3. Z-score: 1.7. IMPRESSION: Normal bone density. Magdy Stinson M.D. Diagnostic Radiologist [email or web address]/Dictated by: Magdy Stinson MD @ 10/31/2024 10:49:00 AM (Electronically Signed)
== END 2024-10-29 14:27 | disposition home or self-care (01) ==
LOC: RAD 14:27
PROVIDERS: PCP Internal Medicine; Visit Provider Internal Medicine
DX: Z78.0 Asymptomatic menopausal state (principal)
CPT/HCPCS: 77080